=== PATIENT | female | born 1975 | race Caucasian/White ===

== ENCOUNTER 2017-05-20 14:57 | Emergency (ER) | payer SELFPAY ==
[~2017-05-20] VITALS: Ht 182.9 cm; Wt 74.0 kg
[2017-05-20 14:59] VITALS: BP 137/73
[2017-05-21] MEDS ORDERED: SULF1TAB49 PO (05:35)
[2017-05-24] MEDS ORDERED: GABA-532 PO (06:43)
[2017-05-24] MEDS ORDERED: MELO-102 PO (06:43)
[2017-05-24] MEDS ORDERED: DIPH25CA6 PO (06:43)
[2017-05-24] MEDS ORDERED: SULF1TAB49 PO (10:01)
== END 2017-05-20 16:55 | disposition left against medical advice (07) ==
LOC: ER 14:58
DX: F15.10 Other stimulant abuse, uncomplicated (principal); F41.9 Anxiety disorder, unspecified; Z59.0 Homelessness; Z79.899 Other long term (current) drug therapy
CPT/HCPCS: 99281; 99283

== ENCOUNTER 2017-05-21 03:28 | Emergency (ER) | payer SELFPAY ==
[~2017-05-21] VITALS: Ht 177.8 cm; Wt 81.8 kg
[2017-05-21 04:17] VITALS: BP 93/39
[2017-05-21] MEDS ORDERED: SULF1TAB49 PO (05:35)
[2017-05-24] MEDS ORDERED: DIPH25CA6 PO (06:43)
[2017-05-24] MEDS ORDERED: MELO-102 PO (06:43)
[2017-05-24] MEDS ORDERED: GABA-532 PO (06:43)
[2017-05-24] MEDS ORDERED: SULF1TAB49 PO (10:01)
== END 2017-05-21 05:41 | disposition home or self-care (01) ==
LOC: ER 03:28
DX: L02.412 Cutaneous abscess of left axilla (principal); Z59.0 Homelessness; Z79.899 Other long term (current) drug therapy
CPT/HCPCS: 99283

== ENCOUNTER 2017-05-21 21:36 | Emergency (ER) | payer OTHER ==
[~2017-05-21 21:36] MED LIST: SULF1TAB49 PO
[2017-05-24] MEDS ORDERED: DIPH25CA6 PO (06:43)
[2017-05-24] MEDS ORDERED: GABA-532 PO (06:43)
[2017-05-24] MEDS ORDERED: MELO-102 PO (06:43)
[2017-05-24] MEDS ORDERED: SULF1TAB49 PO (10:01)
== END 2017-05-21 22:56 | disposition left against medical advice (07) ==
LOC: ER 21:36
DX: R10.9 Unspecified abdominal pain (principal); Z53.21 Procedure and treatment not carried out due to patient leaving prior to being seen by health care provider